=== PATIENT | female | born 1995 | race American Indian/Alaskan Native ===

== ENCOUNTER 2017-01-29 23:37 | Outpatient (CLI) | payer MEDICAID ==
[2017-01-29] MEDS ORDERED: ZOFRAN IV ONE (23:39)
[2017-01-29] MEDS ORDERED: LACTATED RINGERS 1,000 ML IV ONE (23:39)
[2017-01-29 23:53] VITALS: BP 128/62
== END 2017-01-30 01:06 | disposition home or self-care (01) ==
LOC: TRG 23:37
PROVIDERS: ATTEND Obstetrics & Gynecology
DX: Z34.92 Encounter for supervision of normal pregnancy, unspecified, second trimester (principal); Z3A.24 24 weeks gestation of pregnancy
CPT/HCPCS: 59025; 96360; J2405; J7120

== ENCOUNTER 2017-05-12 14:39 | Inpatient (IN) | payer MEDICAID ==
[2017-05-12 19:50] LABS: Hematocrit 37.3 % (30.3-42.9); Hemoglobin 12.4 gm/dl (10.1-14.3); Mean Corpuscular HGB Conc 33 % (30-34); Mean Corpuscular Hemoglobin 29 pg (28-32); Mean Corpuscular Volume 87 fl (79-97); Platelet Count 197 K/mm3 (140-440); Red Blood Count 4.27 M/mm3 (3.65-5.03); Red Cell Distribution Width 16.2 % (13.2-15.2); White Blood Count 8.6 K/mm3 (4.5-11.0)
[2017-05-12] MEDS ORDERED: LACTATED RINGERS 1,000 ML ONE (20:11)
[2017-05-13] MEDS ORDERED: LACTATED RINGERS 1,000 ML ONE ×2 (03:46→10:45)
[2017-05-13] MEDS ORDERED: ZOFRAN ONE (11:59)
--- NOTE | 2017-05-13 12:27 | Ultrasound Report ---
OB ULTRASOUND LIMITED: 05/12/17 CLINICAL: Check amniotic fluid. FINDINGS: Gestation: [place] Position: Cephalic. Amniotic Fluid: Low normal. JOSE = 6.3 cm The placenta was not imaged. Heart Rate: Number 130 BPM IMPRESSION: Single live intrauterine fetus at 38 weeks, 4 daysbased on clinical dating. Low-normal amniotic fluid.
--- NOTE | 2017-05-13 14:27 | History and Physical Report ---
History of Present Illness Date of examination: 05/12/17 Date of admission: 05/12/17 16:31 Chief complaint: I think my water broke History of present illness: Patient is a 21 year old who presented at 38.4 weeks who presented to L&D with concern of leaking fluid although her pad was dry and she was nitrazine negative. An JOSE was ordered which showed a borderline JOSE of 6.3. The decision was mad at that time to watch the patient overnight and iv hydrate in hope that the JOSE would increase overnight. 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 Family/Genetic History: none Social history: single - Obstetrical History Expected Date of Delivery: 05/22/17 Actual Gestation: 38 Week(s) 5 Day(s) : 1 Para: 0 Medications and Allergies Allergies Allergy/AdvReac Type Severity Reaction Status Date / Time No Known Allergies Allergy Unverified 09/05/15 17:14 Home Medications Medication Instructions Recorded Confirmed Last Taken Type Vit-Fe Fumar-FA [ 1 tab PO QDAY 01/29/17 01/29/17 Unknown History Vitamin] Review of Systems All systems: negative Genitourinary: leakage of fluid, contractions - Vital Signs Vital signs: Vital Signs Pulse Pulse Ox 87 96 05/12/17 15:31 05/12/17 15:31 Temp Pulse Resp BP Pulse Ox 97.5 F L 72 20 116/57 79 L 05/13/17 12:00 05/13/17 12:06 05/13/17 12:00 05/13/17 12:06 05/12/17 16:48 - Physical Exam Breasts: Cardiovascular: Regular rate, Normal S1, Normal S2 Lungs: Positive: Clear to auscultation, Normal air movement Abdomen: Positive: normal appearance, soft, normal bowel sounds. Negative: distention, tenderness Vulva: both: normal Vagina: Positive: normal moisture. Negative: discharge Cervix: Negative: lesion, discharge Uterus: Positive: normal size, normal contour Adnexa: both: normal Anus/Rectum: Positive: normal perianal skin, heme negative. Negative: rectal mass, hemorrhoids Extremities: Deep Tendon Reflex Grade: Normal +2 - Obstetrical Cervical Dilatation: 0 Cervical Effacement Percentage: 70 Uterine Contraction Pattern: Irregular Results Result Diagrams: 05/12/17 18:15 Abnormal lab results 05/12/17 Range/Units 18:15 RDW 16.2 H (13.2-15.2) % All other labs normal. Assessment and Plan IUP at 38.5 weeks with current oligohydramnios. Will admit and monitor patient overnight. Will repeat JOSE on Monday. If no change will keep patient and proceed with induction.
[2017-05-13] MEDS ORDERED: ePHEDrine SULFATE IV PRN (14:31)
[2017-05-13] MEDS ORDERED: ZOFRAN IV PRN (14:31)
[2017-05-13] MEDS ORDERED: BRETHINE IVP PRN (14:31)
[2017-05-13] MEDS ORDERED: BRETHINE SUB-Q PRN (14:31)
[2017-05-13] MEDS ORDERED: MINERAL OIL PO PRN (14:31)
[2017-05-13] MEDS ORDERED: XYLOCAINE 2% INFILTRATI ONE (14:31)
[2017-05-13] MEDS ORDERED: CERVIDIL VG ONE (14:31)
--- NOTE | 2017-05-13 14:31 | Progress Note ---
Assessment and Plan HD 2 for this patient at 38.5 with oligohydramnios. JOSE repeated today which revealed no change or elevation. Will proceed with induction for oligohydramnios tonight. Will place cervidil, then follow with pitocin. Anticipate . Subjective - Subjective Date of service: 05/13/17 Interval history: Patient is a 21 year old who presented at 38.4 weeks who presented to L&D with concern of leaking fluid although her pad was dry and she was nitrazine negative. An JOSE was ordered which showed a borderline JOSE of 6.3. The decision was mad at that time to watch the patient overnight and iv hydrate in hope that the JOSE would increase overnight. Patient reports: other (no complaints) Objective - Vital Signs Vital Signs: Vital Signs - 12hr 05/13/17 05/13/17 05/13/17 03:48 03:53 08:00 Temperature 98.1 F 96.8 F L Pulse Rate 79 Pulse Rate [ 79 70 Right From Monitor] Respiratory 16 20 Rate Blood Pressure 111/62 Blood Pressure 111/62 116/53 [Left Arm] 05/13/17 05/13/17 05/13/17 08:17 12:00 12:06 Temperature 97.5 F L Pulse Rate 70 72 Pulse Rate [ 72 Right From Monitor] Respiratory 20 Rate Blood Pressure 116/53 116/57 Blood Pressure 116/57 [Left Arm] - Exam Cardiovascular: Regular rate, Normal S1, Normal S2 Lungs: Clear to auscultation, Normal air movement Abdomen: Present: normal appearance, soft, normal bowel sounds Uterus: Present: normal, firm Cervical Dilatation: 0 Cervical Effacement Percentage: 70 Uterine Contraction Pattern: Irregular Extremities: normal Deep Tendon Reflex Grade: Normal +2 - Labs Labs: Abnormal Labs 05/12/17 18:15 RDW 16.2 H Laboratory Results - last 24 hr 05/12/17 05/12/17 18:15 18:15 WBC 8.6 RBC 4.27 Hgb 12.4 Hct 37.3 MCV 87 MCH 29 MCHC 33 RDW 16.2 H Plt Count 197 Blood Type AB POSITIVE Antibody Screen TNR ARTIS Antibody Screen Negative
[2017-05-13] MEDS ORDERED: PITOCin/NS 20 UNIT/1000ML DRIP 20 UNITS/1,000 ML BAG IV SCH (15:00)
[2017-05-13] MEDS ORDERED: LACTATED RINGERS 1,000 ML IV SCH (15:00)
[2017-05-13] MEDS: STADOL IV PRN (23:30)
[2017-05-14] MEDS ORDERED: POLYCILLIN/NS 1 GM/50 ML 1 GM/50 ML BAG IV SCH
[2017-05-14] MEDS: PITOCin/NS 30 UNIT/500ML 30 UNITS/500 ML BAG IV SCH ×2 (11:13→12:40)
--- NOTE | 2017-05-14 11:21 | Ultrasound Report ---
OB ULTRASOUND LIMITED: 05/13/17 CLINICAL: well being. FINDINGS: Gestation: [place] Position: Cephalic. Amniotic Fluid: Low-normal JOSE = 6.6 cm Heart Rate: 120 BPM IMPRESSION: Single live intrauterine fetus at 38 weeks, 5 days based on clinical dating.
[2017-05-14] MEDS: STADOL IV PRN ×2 (13:51→23:32)
--- NOTE | 2017-05-14 13:53 | Progress Note ---
Assessment and Plan Day 2 of induction for oligohydramnios. Will begin pitocin on today. Continue current regimen. Subjective - Subjective Date of service: 05/14/17 Interval history: Patient is a 21 year old who presented at 38.4 weeks who presented to L&D with concern of leaking fluid although her pad was dry and she was nitrazine negative. An JOSE was ordered which showed a borderline JOSE of 6.3. Patient received cervidil overnight and is now 1 cm/30/posterior. Will now initiate pitocin Patient reports: other (no complaints) Objective - Vital Signs Vital Signs: Vital Signs - 12hr 05/14/17 05/14/17 05/14/17 03:59 04:00 07:55 Temperature 97.7 F Pulse Rate 72 83 Pulse Rate [ 72 Right From Monitor] Respiratory 18 Rate Blood Pressure 115/60 122/82 Blood Pressure 115/60 [Left Arm] 05/14/17 05/14/17 07:58 11:12 Temperature 97.5 F L Pulse Rate 73 Pulse Rate [ 83 Right From Monitor] Respiratory 16 Rate Blood Pressure 109/57 Blood Pressure 122/82 [Left Arm] - Exam Lungs: Clear to auscultation, Normal air movement Abdomen: Present: normal appearance, soft, normal bowel sounds Uterus: Present: normal, firm Cervical Dilatation: 1 Cervical Effacement Percentage: 50 Uterine Contraction Pattern: Irregular Extremities: normal Deep Tendon Reflex Grade: Normal +2 - Labs Labs: Abnormal Labs 05/12/17 18:15 RDW 16.2 H
[2017-05-14] MEDS: SUBLIMAZE IV PRN (20:58)
[2017-05-15] MEDS: SUBLIMAZE IV PRN (01:31)
[2017-05-15] MEDS ORDERED: ePHEDrine SULFATE ONE (02:49)
[2017-05-15] MEDS ORDERED: ePHEDrine SULFATE IV PRN (03:23)
[2017-05-15] MEDS ORDERED: NARCAN 2 MG/2 ML IV PRN (03:23)
--- NOTE | 2017-05-15 03:23 | Anesthesia Consultation ---
Anesthesia Consult and Med Hx Date of service: 05/15/17 - Airway Anesthetic Teeth Evaluation: Good ROM Head & Neck: Adequate Mental/Hyoid Distance: Adequate Mallampati Class: Class II Intubation Access Assessment: Good - Pulmonary Exam CTA: Yes - Cardiac Exam Cardiac Exam: No Murmur - Pre-Operative Health Status ASA Pre-Surgery Classification: ASA2 Proposed Anesthetic Plan: Epidural - Pulmonary Hx Asthma: No COPD: No Hx Pneumonia: No - Cardiovascular System Hx Hypertension: No - Central Nervous System Hx Seizures: No Hx Psychiatric Problems: No - Endocrine Hx Renal Disease: No Hx End Stage Renal Disease: No Hx Hypothyroidism: No Hx Hyperthyroidism: No - Hematic Hx Anemia: No Hx Sickle Cell Disease: No - Other Systems Hx Alcohol Use: No
[2017-05-15] MEDS ORDERED: fentaNYL-BUPIV 2 MCG/ML-0.125% 200 MCG/100 ML BAG EPIDURAL SCH (04:00)
--- NOTE | 2017-05-15 07:33 | Procedure Note ---
OB Delivery Note - Delivery Date of Delivery: 05/15/17 Surgeon: BRYANNA RUIZ Estimated blood loss: 200cc - Vaginal Delivery presentation: vertex Delivery position: OA Intrapartum events: none Delivery augmentation: rupture of membranes, pitocin Delivery monitor: external FHT, external uterine Route of delivery: Delivery placenta: spontaneous Delivery laceration: 2nd degree Delivery repair: vicryl Anesthesia: epidural Delivery comments: Viable male delivered over intact perineum with minimal fluid. No nuchal cord. Apgars 9,9. Infant placed on maternal abdomen. Cord clamped and cut when done pulsing. Placenta delivered spontaneously and intact with 3vc. Laceration repaired with 2.0 chromic. Patient tolerated procedure well. Excellent hemostasis - Infant A at 1 minute: 9 at 5 minutes: 9 Gender: Male (7 pounds 8 ounces)
[2017-05-15] MEDS ORDERED: SODIUM CHLORIDE FLUSH SYRINGE 10 ML IV PRN (10:00)
[2017-05-15] MEDS ORDERED: PHENERGAN PR PRN (10:00)
[2017-05-15] MEDS ORDERED: TYLENOL PO PRN (10:00)
[2017-05-15] MEDS ORDERED: TUCKS PAD TP PRN (10:00)
[2017-05-15] MEDS ORDERED: DULCOLAX PR PRN (10:00)
[2017-05-15] MEDS ORDERED: PHENERGAN PO PRN (10:00)
[2017-05-15] MEDS ORDERED: BENADRYL PO PRN (10:00)
[2017-05-15] MEDS ORDERED: NORCO 5/325 PO PRN (10:00)
[2017-05-15] MEDS ORDERED: ZOFRAN IV PRN (10:00)
[2017-05-15] MEDS ORDERED: LANSINOH TP PRN (10:00)
[2017-05-15] MEDS: COLACE PO SCH ×2 (11:04→23:08)
[2017-05-15] MEDS: MOTRIN PO SCH ×3 (11:05→23:08)
[2017-05-15] MEDS: PRENATAL VITAMIN PO SCH (11:05)
--- NOTE | 2017-05-15 15:31 | Admit Criteria Form ---
Admission Criteria Documentation: OBSTETRIC AND GYNECOLOGIC DISEASE GRG Clinical Indications for Admission to Inpatient Care (Place 'X' for any and all applicable criteria): Hospital admission is needed for appropriate care of the patient because of 1 or more of the following (1)(2)(3): [ ]I. Hemodynamic instability, as indicated by 1 or more of the following (1)( 2)(3)(4)(5): [ ]a) Vital signs or other findings not as expected for chronic patient condition or baseline [ ]b) Instability indicated by 1 or more of the following: [ ]i) Hypotension [ ]ii) Symptomatic tachycardia unresponsive to treatment (eg, analgesia, fluids, sedation as indicated) [ ]iii) Inadequate perfusion indicated by 1 or more of the following: [ ]A. Lactic acidosis (greater than 2 mmol/ L) [ ]B. New abnormal capillary refill ( greater than 3 seconds) [ ]C. Reduced urine output [ ]D. New altered mental status [ ]iv) Orthostatic vital sign changes unresponsive to treatment (eg, fluids) [ ]v) Multiple IV fluid boluses required to maintain adequate blood pressure or perfusion [ ]vi) IV inotropic or vasopressor medication required to maintain adequate blood pressure or perfusion [ ]II. Obstetric infection requiring hospitalization indicated by 1 or more of the following(13)(14): [ ]a) Chorioamnionitis [ ]b) Endometritis (except mild endometritis) [ ]c) Pelvic abscess [ ]d) Peritonitis [ ]e) Septic pelvic thrombophlebitis [ ]III. Amniotic fluid or pulmonary embolism(4)(5)(6) [ ]IV. Suspected peritonitis or ectopic requiring monitoring beyond scope of 24 hours or observation care(7)(8) [ ]V. compromise requiring hospitalization indicated by ALL of the following(9)(10): [ ]a) compromise indicated by 1 or more of the following(11): [ ]i) Abnormal heart rate monitoring [ ]ii) Abnormal contraction stress test [ ]iii) Abnormal biophysical profile [ ]iv) Abnormal Doppler flow in vessels (ie, Doppler velocimetry) (12) [ ]b) Persistence of compromise indicators during evaluation and observation monitoring [ ]. Ovarian hyperstimulation syndrome requiring hospitalization[A] indicated by ALL of the following(15): [ ]a) Recent ovarian stimulation with gonadotropins, or evidence on ultrasound of spontaneous emergence of large number of ovarian follicles [ ]b) Evidence of severe ovarian hyperstimulation syndrome indicated by 1 or more of the following: [ ]i) Abdominal pain unresponsive to oral therapy [ ]ii) Acute respiratory distress syndrome [ ]iii) Electrolyte imbalance ( eg, hyponatremia, hyperkalemia) [ ]iv) Elevated liver enzymes [ ]v) Evidence of thromboembolism [ ]vi) Hemoconcentration (hematocrit greater than 45 % (0.45)) [ ]vii) Inability to maintain oral intake adequate to prevent hemoconcentration [ ]viii) Marked hypotension from baseline (eg, SBP 20 mmHg below patients usual pressure) [ ]ix) Oliguria or anuria [ ]x) Ovarian torsion [ ]xi) Pleural or pericardial effusion on x-ray or echocardiogram [ ]xii) Rapid increase in serum creatinine to greater than 1.2 mg/dL (106 micromoles/L) or creatinine clearance less than 50 mL/min/1.73m2 (0.84 mL/ sec/1.73m2) [ ]xiii) Ruptured ovarian cyst with hemorrhage [ ]xiv) Severe abdominal pain or peritoneal signs [ ]xv) Tense ascites that cannot be managed with paracentesis in outpatient setting [ ]VII.Pelvic infection requiring hospitalization indicated by 1 or more of the following (16): [ ]a) Outpatient treatment has failed or is not appropriate (eg, inpatient monitoring required) [ ]b) Pelvic abscess [ ]c) Surgical emergency cannot be excluded (eg, rigid abdomen) [ ]d) Vomiting precluding outpatient and observation care management VIII. loss complications requiring inpatient medical treatment indicated by 1 or more of the following (4)(7)(9): [ ]a) Fever [ ]b) Peritonitis [ ]c) Sepsis [ ]d) Severe abdominal pain [ ]IX. or patient requiring monitoring for severe heart failure, pulmonary disease, or other comorbid condition (eg, peripartum cardiomyopathy) (4)(17) [ ]X. patient with rupture of membranes requiring hospitalization indicated by ANY ONE of the following: [ ]a) Chorioamnionitis, cloudy amniotic fluid, or other evidence of infection [ ]b) compromise or other need for monitoring (11) [ ]c) Gestation longer than 23 weeks and ANY ONE of the following: [ ]i) Abnormal (noncephalic) presentation [ ]ii) Inadequate home environment (eg, home too far from hospital, unable to rapidly return to hospital) [ ]d) Temperature greater than 100.4 degrees F (38 degrees C)( oral) [ ]e) Threatened labor requiring monitoring beyond scope (eg, over 24 hours) of observation Care [ ] XI. complications, including severe lacerations, infections, or retained placenta (19) [ ] XII.Uterine bleeding with high-risk features indicated by ANY ONE of the following (4): [ ]a) Active major hemorrhage (eg, hemorrhage) [ ]b) Coagulopathy with active bleeding [ ]c) Gestational trophoblastic disease (eg, molar ) (20 ) [ ]d) (longer than 23 weeks) and ANY ONE of the following: [ ]i) Pain [ ]ii) Placental abruption, known or suspected [ ]iii) Placenta accrete, known or suspected(21) [ ]iv) Placenta previa, known or suspected [ ]v) Vasa previa [ ]e) Severe anemia [ X]XIII. Obstetric or Gynecologic Disease, condition or symptom for which ANY ONE of the following: [X ]a) Emergency and observation care have failed or are not considered appropriate ( Also use General Criteria: Observation Care Criteria as appropriate) [ ]b) Presence of a General Admission Criteria or Pediatric General Admission Criteria The original [facility] content created by [facility] has been revised. The portions of the content which have been revised are identified through the use of italic text or in bold, and [facility] has neither reviewed nor approved the modified material.All other unmodified content is copyright [facility]. Please see references footnoted in the original [facility] edition 2016 Admission Criteria Met: Yes
[2017-05-15 20:12] LABS: Hematocrit 32.9 % (30.3-42.9); Hemoglobin 10.7 gm/dl (10.1-14.3)
[2017-05-15] MEDS ORDERED: MILK OF MAGNESIA PO PRN (22:00)
[2017-05-16] MEDS ORDERED: DERMOPLAST TP PRN (00:38)
[2017-05-16] MEDS: MOTRIN PO SCH (05:49)
--- NOTE | 2017-05-16 07:38 | Progress Note ---
Assessment and Plan O:VSS AF A: Stable PP Day 1 Anemia P: Iron Day 1 Subjective - Subjective Date of service: 05/16/17 Patient reports: appetite normal, voiding normally, pain well controlled, flatus , ambulating normally : doing well Objective - Vital Signs Latest vital signs: Vital Signs Temp Pulse Pulse Resp BP BP Pulse Ox 05/16/17 04:00 98.6 F 77 16 111/79 05/16/17 00:00 98.6 F 77 16 110/69 05/15/17 19:30 98.6 F 72 16 123/67 05/15/17 17:30 98.1 F 116 H 18 101/60 05/15/17 12:00 98.7 F 72 18 124/73 05/15/17 09:30 98.8 F 65 20 128/68 05/15/17 08:53 98.4 F 60 16 131/58 05/15/17 08:38 60 131/58 05/15/17 08:15 18 05/15/17 08:07 76 122/70 05/15/17 07:52 68 118/70 05/15/17 07:41 68 96 Intake and Output 05/15/17 05/16/17 05/16/17 22:59 06:59 14:59 Intake Total 500 300 Balance 500 300 Intake: Oral 200 Intake, Free Water 300 300 Other: Total, Intake Amount 200 - Exam Breasts: Present: deferred Abdomen: Present: normal appearance, soft Vulva: both: normal Uterus: Present: normal, firm, fundal height below umbilicus. Absent: bogginess , tenderness Extremities: Present: normal
--- NOTE | 2017-05-16 08:05 | Discharge Summary ---
Providers - Providers Date of Admission: 05/12/17 16:31 Date of discharge: 05/16/17 Attending physician: GLENNA RICHARDSON MD Primary care physician: GLENNA RICHARDSON MD Hospitalization Reason for admission: active labor, IUP at term Delivery: Episiotomy: none Laceration: 2nd degree Other procedures: none complications: none Discharge diagnosis: IUP at term delivered baby: male Condition at discharge: Good Disposition: DC-01 TO HOME OR SELFCARE Plan - Discharge Medications Prescriptions: HYDROcodone/APAP 5-325 [[place] 5/325] 1 each PO Q4HR PRN #40 tablet PRN Reason: Pain Ibuprofen [Motrin 800 MG tab] 800 mg PO TID PRN #30 tablet PRN Reason: Pain - Provider Discharge Summary Activity: routine, no sex for 6 weeks, no heavy lifting 4 weeks, no strenuous exercise Diet: routine Additional instructions: [] Smoking cessation referral if applicable(refer to patient education folder for contact #) [] Refer to [facility] Booklet Call your doctor immediately for: * Fever > 100.5 * Heavy vaginal bleeding ( >1 pad per hour) * Severe persistent headache * Shortness of breath * Reddened, hot, painful area to leg or breast * Drainage or odor from incision. * Keep incision clean and dry at all times and follow doctor's instructions regarding bathing/showering - Follow up plan Follow up: GLENNA RICHARDSON MD [Primary Care Provider] - (Return to office 4 weeks . Call office to schedule infants circumcision.)
[2017-05-16] MEDS: COLACE PO SCH (10:20)
[2017-05-16] MEDS: PRENATAL VITAMIN PO SCH (10:20)
[2017-05-16 12:28] VITALS: BP 121/76
== END 2017-05-16 13:55 | disposition home or self-care (01) | DRG 775 ==
LOC: TRG 14:39 → LD 16:31 → OBSVTOIN 16:31 → OB 05-15 09:22
PROVIDERS: ADMIT Obstetrics & Gynecology; ATTEND Obstetrics & Gynecology
PROC: 10E0XZZ Delivery of Products of Conception, External Approach (ICD-10-PCS; principal; 2017-05-15)
PROC: 0KQM0ZZ Repair Perineum Muscle, Open Approach (ICD-10-PCS; 2017-05-15)
PROC: 3E0S3CZ (ICD-10-PCS; 2017-05-15)
PROC: 00HU33Z Insertion of Infusion Device into Spinal Canal, Percutaneous Approach (ICD-10-PCS; 2017-05-15)
DX: O41.03X0 Oligohydramnios, third trimester, not applicable or unspecified (principal); O70.1 Second degree perineal laceration during delivery; Z37.0 Single live birth; Z3A.38 38 weeks gestation of pregnancy; O90.81 Anemia of the puerperium; D64.9 Anemia, unspecified
CPT/HCPCS: 36415; 76815; 85014; 85018; 85027; 86850; 86900; 86901; A6250; J0595; J2405; J2590; J3010; J7120

== ENCOUNTER 2021-10-18 17:48 | Emergency (ER) | payer MEDICAID ==
[2021-10-18 17:54] VITALS: BP 103/51
--- NOTE | 2021-10-18 19:02 | Emergency Department Report ---
ED General Adult HPI - General Chief complaint: Chest Pain Stated complaint: CHEST PAIN Time Seen by Provider: 10/18/21 18:01 Source: patient Mode of arrival: Wheelchair Limitations: No Limitations - History of Present Illness Initial comments: Patient is a 25-year-old female presents emergency room with complaints of right-sided chest pain under the right breast that began 3 days ago. She states that she has pain whenever she lays on that side. She states that she experiences shortness of breath and has pleuritic pain. She denies any fever, cough, nausea, vomiting, diarrhea, calf pain, hemoptysis. She is currently 30 weeks and states that she sees [facility], prior to being seen in the emergency department she was cleared by OB. Past medical history of asthma. No allergies to medications. Severity scale (0 -10): 7 - Related Data Home Medications Medication Instructions Recorded Confirmed Last Taken Vit-Fe Fumar-FA [ 1 tab PO QDAY 01/29/17 05/15/17 05/11/17 Vitamin] Previous Rx's Medication Instructions Recorded Last Taken Type HYDROcodone/APAP 5-325 [[place] 1 each PO Q4HR PRN #40 tablet 05/16/17 Unknown Rx 5/325] Ibuprofen [Motrin 800 MG tab] 800 mg PO TID PRN #30 tablet 05/16/17 Unknown Rx Allergies Allergy/AdvReac Type Severity Reaction Status Date / Time No Known Allergies Allergy Unverified 09/05/15 17:14 ED Review of Systems ROS: Stated complaint: CHEST PAIN Other details as noted in HPI Comment: All other systems reviewed and negative ED Past Medical Hx - Past Medical History Hx Hypertension: No Hx Congestive Heart Failure: No Hx Diabetes: No Hx Deep Vein Thrombosis: No Hx Renal Disease: No Hx Sickle Cell Disease: No Hx Seizures: No Hx Asthma: Yes (last used inhaler march 2021) Hx COPD: No Hx HIV: No - Social History Smoking Status: Never Smoker - Medications Home Medications: Home Medications Medication Instructions Recorded Confirmed Last Taken Type Vit-Fe Fumar-FA [ 1 tab PO QDAY 01/29/17 05/15/17 05/11/17 History Vitamin] HYDROcodone/APAP 5-325 [[place] 1 each PO Q4HR PRN #40 tablet 05/16/17 Unknown Rx 5/325] Ibuprofen [Motrin 800 MG tab] 800 mg PO TID PRN #30 tablet 05/16/17 Unknown Rx ED Physical Exam - General Limitations: No Limitations General appearance: alert, in no apparent distress - Head Head exam: Present: atraumatic, normocephalic - Eye Eye exam: Present: normal appearance - ENT ENT exam: Present: mucous membranes moist - Respiratory Respiratory exam: Present: normal lung sounds bilaterally. Absent: respiratory distress, wheezes, rales, rhonchi, stridor, chest wall tenderness, accessory muscle use, decreased breath sounds, prolonged expiratory - Cardiovascular Cardiovascular Exam: Present: regular rate, normal rhythm, normal heart sounds. Absent: systolic murmur, diastolic murmur, rubs, gallop - GI/Abdominal GI/Abdominal exam: Present: soft, tenderness (mild RUQ), normal bowel sounds. Absent: distended, guarding, rebound, rigid - Neurological Exam Neurological exam: Present: alert, oriented X3 - Psychiatric Psychiatric exam: Present: normal affect, normal mood - Skin Skin exam: Present: warm, dry, intact ED Course Vital Signs 10/18/21 17:51 Temperature 98.2 F Pulse Rate 86 Respiratory 18 Rate Blood Pressure 103/51 [Left] O2 Sat by Pulse 100 Oximetry ED Medical Decision Making - EKG Data EKG shows normal: sinus rhythm, axis, intervals, QRS complexes, ST-T waves Rate: normal - Medical Decision Making Patient is a 25-year-old female presents emergency room with complaints of right-sided chest pain under the right breast that began 3 days ago. She states that she has pain whenever she lays on that side. She states that she experiences shortness of breath and has pleuritic pain. She denies any fever, cough, nausea, vomiting, diarrhea, calf pain, hemoptysis. She is currently 30 weeks and states that she sees [facility], prior to being seen in the emergency department she was cleared by OB. Past medical history of asthma. No allergies to medications. Vitals are normal. EKG is a normal limits. Advised patient that we would need to obtain laboratory studies, CT angio chest, right upper quadrant ultrasound. Phlebotomy went to obtain laboratory studies and patient refused labs. I went to discuss with patient that we had to have the laboratory studies in order for her to have the CT scan. I asked time buyer if they could place an IV and obtain labs at the same time. Software Support Technician Chase went to the room and patient again refused. I asked Elizabeth, female time buyer if she could attempt to obtain IV and laboratory studies, she went into her room and the patient states that she wants to leave AMA. I discussed with patient the risk associated with leaving AGAINST MEDICAL ADVICE. The patient is alert and oriented x3. The patient exhibits decision-making capacity. The patient is free from distracting injury. The risk of leaving without a complete medical examination, and AGAINST MEDICAL ADVICE, were explained to the patient, and they included , disability, paralysis, permanent loss of quality of life, PE, threat to her fetus, cholecystitis. Patient verbalized understanding to these and was able to articulate these risk in their own words this conversation was witnessed by ozzie Johnson. Critical care attestation.: If time is entered above; I have spent that time in minutes in the direct care of this critically ill patient, excluding procedure time. ED Disposition Clinical Impression: SOB (shortness of breath) Chest pain Qualifiers: Chest pain type: unspecified Qualified Code(s): R07.9 - Chest pain, unspecified Disposition: 07 LEFT AGAINST MEDICAL ADVICE Is pt being admited?: No Does the pt Need Aspirin: No Condition: Undetermined Instructions: Nonspecific Chest Pain, Adult Referrals: PRIMARY CARE, [Primary Care Provider] - 3-5 Days Forms: AMA Form Time of Disposition: 19:12
--- NOTE | 2021-10-19 10:24 | Electrocardiograph Report ---
[facility] Test Date: 2021-10-18 Test Time: 18:01:31 Pat Name: MAHSA ARIAS Department: Room: Gender: F Sap Bi Architect: NURSE : 1995 Requested By: DOC OWEN Order Number: [id number] Reading MD: Az Villasenor Measurements Intervals [place] Rate: 82 P: 66 FL: 140 QRS: 13 QRSD: 91 T: 20 QT: 380 QTc: 444 Interpretive Statements Sinus rhythm No previous ECG available for comparison Electronically Signed On 10-19-2021 10:24:03 EST by Az Villasenor
== END 2021-10-18 19:07 | disposition left against medical advice (07) ==
LOC: ED 17:48
DX: R07.89 Other chest pain (principal); R06.02 Shortness of breath; J45.909 Unspecified asthma, uncomplicated; Z79.899 Other long term (current) drug therapy
CPT/HCPCS: 93005; 99282